=== PATIENT | female | born 1985 | race Caucasian/White ===

== ENCOUNTER 2020-10-28 01:58 | Emergency (ER) | payer OTHER, SELFPAY ==
[2020-10-28 02:04] VITALS: BP 148/90; PULSE 108; RESP 18; TEMP 36.1; O2SAT 100
--- NOTE | 2020-10-28 02:10 | PC.NURSE ---
Pt refused library monitor at this time. This RN explained purpose of cardiac monitoring. Pt states I dont need that, they didnt do that before. I'll just wait for the doctor.
--- NOTE | 2020-10-28 02:24 | ED.GENADULT ---
HPI - General Adult General Chief complaint: Extremity Problem,Nontraumatic Stated complaint: DVT? Time Seen by Provider: 10/28/20 02:09 History of Present Illness HPI narrative: Patient 34-year-old female presents the emergency department with chief complaint of left leg possible blood clot. Patient states she has had a history of some superficial thrombophlebitis and states that her primary doctor had treated her with anticoagulants before for this she also was treated with anti-inflammatories. The patient states that her daughter scraped her leg and that she noticed that there was discomfort in her leg. The patient states that she just wants an ultrasound and wants to be treated with anticoagulants. The patient states that she does not want any blood work done at this time. Related Data Allergies Allergy/AdvReac Type Severity Reaction Status Date / Time No Known Allergies Allergy Unknown Verified 04/27/18 10:32 [facility] Social History Social History Gender identity (if verbalized by the patient): Female Exam Narrative: Exam Narrative: GENERAL: Well-appearing, well-nourished, and in no acute distress. HEAD: Normocephalic, atraumatic. EYES: EOMI. ENT: Mucous membranes moist. NECK: CHEST: No respiratory distress. EXTREMITIES: Normal range of motion. NEURO: No focal deficits. Alert and oriented x3. PSYCH: Normal mood and affect. Course Course Emergency Course: While obtaining history from the patient the patient stated that she did not want any form of blood testing and just wanted an ultrasound and to be started on Lovenox. It was explained to the patient that we do not know her current blood counts for coagulation studies. It was recommended that we perform blood test prior to initiating any form of temporary anticoagulation therapy and it was explained that we could schedule for an ultrasound in the morning as currently we do not have ultrasound. The patient stated that she does not understand why she cannot just have a blood thinner and cannot get an ultrasound right now without any other testing. The patient states that she does not want further evaluation and wishes to leave and follow-up with her primary care physician. Vital Signs Vital signs: Vital Signs Temperature 36.1 C L 10/28/20 02:04 Pulse Rate 108 H 10/28/20 02:04 Respiratory Rate 18 10/28/20 02:04 Blood Pressure 148/90 H 10/28/20 02:04 Pulse Oximetry 100 10/28/20 02:04 Temperature 36.1 C L 10/28/20 02:04 Pulse Rate 108 H 10/28/20 02:04 Respiratory Rate 18 10/28/20 02:04 Blood Pressure 148/90 H 10/28/20 02:04 Pulse Oximetry 100 10/28/20 02:04 Medical Decision Making Vital Signs Vital Signs: Vital Signs Temperature 36.1 C L 10/28/20 02:04 Pulse Rate 108 H 10/28/20 02:04 Respiratory Rate 18 10/28/20 02:04 Blood Pressure 148/90 H 10/28/20 02:04 Pulse Oximetry 100 10/28/20 02:04 Temperature 36.1 C L 10/28/20 02:04 Pulse Rate 108 H 10/28/20 02:04 Respiratory Rate 18 10/28/20 02:04 Blood Pressure 148/90 H 10/28/20 02:04 Pulse Oximetry 100 10/28/20 02:04 Discharge Plan Discharge Clinical Impression: Acute leg pain Qualifiers: Laterality: left Qualified Code(s): M79.605 - Pain in left leg Patient Disposition: Elopement After Seen by Prov Condition: Stable Follow-up/Referrals: PHYSICIAN NOT ON STAFF,NONSTAFF [Non-Staff] - Time of Disposition:
--- NOTE | 2020-10-28 02:24 | PC.NURSE ---
MD in to speak c pt for initial interview/assessment. Pt could be heard speaking loudly to ED MD Leonard in ED 5 from nurses station. This RN overheard pt tell MD that she has had previous blood clots, and currently had one in left leg. pt c/o pain to left upper leg. Pt requesting blood thinner and refused monitor placement, blood work. ED MD attempted to explain rationale of obtaining baseline labs and US prior to prescribing blood thinner, ads is current evidence based practice for known DVT. ED MD heard telling pt that it was not best practice to prescribe blood thinner for superficial thrombus. Pt also over heard demanding that ED MD speak to her pcp for treatment guidelines. This RN also heard pt state You're going to take care of me the way you want to take care of me. if you don't take care of me like i want to be taken care of , then i'm just going to leave. Shortly thereafter, ED MD Leonard was overhead paged for phone call, and exited room, returning to nurses station. as this RN was preparing to assess pt in room, pt seen walking out of said room and toward waiting room. Pt left department, while continuing to speak loudly on her cell phone, as she had been since her arrival in dept. Ambulation was steady, even, unassisted and pt appeared to be in no acute distress. speech clear, and pt last seen walking to her car in ED parking lot. ED MD and ED charge nurse notified that pt eloped.
== END 2020-10-28 02:45 | disposition left against medical advice (07) ==
PROVIDERS: Emergency Provider Emergency Medicine
DX: M79.605 Pain in left leg (principal)
CPT/HCPCS: 99281